=== PATIENT | male | born 1955 | race Caucasian/White ===

== ENCOUNTER 2016-04-05 10:51 | Emergency (ER) | payer MEDICARE, MEDICAID ==
[2016-04-05 10:52] VITALS: BMI 32.5
[2016-04-05 10:56] VITALS: TEMP 98.4
[2016-04-05] MEDS ORDERED: HYDROCODONE 5 MG/ACETAMIN 325 MG TAB PO ONE (11:17)
[2016-04-05 11:18] VITALS: BP 149/85; PULSE 82
--- NOTE | 2016-04-05 11:20 | EDPRACDOC ---
- General Information Chief Complaint: Knee Pain Stated Complaint: KNEE PAIN Time Seen by Provider: 04/05/16 11:16 Information Source: Patient Mode of Arrival: Car Home Medications: Home Medications Montelukast Sodium [Singulair] 10 mg PO DAILY 03/09/13 Levothyroxine Sodium [Synthroid] 50 mcg PO DAILY 07/30/14 Hydrocodone Bit/Acetaminophen [Lortab 5/325] 1 tab PO Q4-6H PRN #15 tab Allergies/Adverse Reactions: Allergies Allergy/AdvReac Type Severity Reaction Status Date / Time acetaminophen [From Percocet] Allergy Intermediate Nausea/Vomi Verified 10:56 ting cyclobenzaprine HCl Allergy Intermediate Nausea/Vomi Verified 04/05/16 10:56 [From Flexeril] ting promethazine HCl Allergy Intermediate Unknown/See Verified 04/05/16 10:56 [From Phenergan] Comments lansoprazole [From Prevacid] Allergy Mild HIVES Verified 04/05/16 10:56 Penicillins Allergy Mild HIVES Verified 04/05/16 10:56 cortisone Allergy Rash-Genera Verified 04/05/16 10:57 lized ketorolac tromethamine Allergy See Verified 04/05/16 10:56 [From Toradol] Comments - History of Present Illness Onset: RECORD KEEPER HPI: Pt states he fell while getting off his boat. C/o R knee pain with swelling. Pt states after fall his "knee cap wasn't in right spot". Denies numbness, leg or thigh pain, ankle pain. Knee Problem Location: Right Mechanism: Reports: Blunt Trauma Circumstances: Reports: Fall, Spontaneous Relevant History: Reports: None Able to Bear Weight: Limited Pain Severity: Reports: Moderate Associated Signs & Symptoms: Reports: Swelling ED Past Medical History - History Reviewed Yes Nurses notes reviewed and agree except as marked - Patient Medical History Respiratory History: Reports: Asthma Systemic History: Reports: Hyperthyroidism. Denies: Cancer Additional Past Medical History: CHRONIC BACK PAIN AND CHRONIC HEADACHES - Social Medical History Smoking Status: Heavy tobacco smoker (5 or more cigarettes/day or daily pipe/ cigar) ETOH: None Substance Abuse: None EDM Review of Systems - Review of Systems Constitutional: No Symptoms Reported. negative: Fever, Chills, Weakness, Fatigue, Loss of Appetite Neurological: No Symptoms Reported. negative: Headache, Dizziness, Seizure, Numbness, Weakness, Speech Difficulty, Gait Difficulty Musculoskeletal: Knee Integumentary: No Symptoms Reported. negative: Itching, Rash, Bruising, Wound Allergic/Immunologic: No Symptoms Reported. negative: Hives, Itching Hematologic: No Symptoms Reported. negative: Lymphadenopathy, Easy Bruising, Easy Bleeding Psychiatric: No Symptoms Reported. negative: Anxiety, Depression, Hallucinations, Insomnia, Suicidal - Physical Exam Constitutional: Alert (Awake) Oriented to: Time, Person, Place Last recorded Vital Signs: Last Vital Signs Temp 98.4 F 04/05/16 10:53 Pulse 82 04/05/16 11:17 Resp 18 04/05/16 11:17 BP 149/85 04/05/16 11:17 Pulse Ox 97 04/05/16 11:17 Oxygen Pulse Oxygen Saturation 97 O2 Device Room Air Oxygen Flow Rate Fraction of Inspired Oxygen ( FIO2) - HEENT Head: Normal ( normocephalic) - Respiratory/Cardiovascular Respiratory: Normal - CTA (BBS clear to auscultation without adventitious sounds ) Cardiovascular: Normal (RRR without murmur, gallop or rub) - Musculoskeletal Extremities: Normal (Normal tone, Pulses 2+ No cyanosis or edema, FROM) - Integumentary Skin: Normal, Warm, Dry Lymphatics: Normal (no adenopathy) - Neurologic Memory Impaired: Normal Motor Function: Normal (Normal tone, Pulses 2+ No cyanosis or edema, FROM) Mood Description: Normal Perception: Normal ED Knee Problem Phys Exam - Musculoskeletal Knee: Swelling, Joint Effusion, Limited ROM, Moderate Tenderness Knee Ligaments: Other (limited due to pain) Thigh: Normal Lower Leg: Normal Distal Function/Circulation: Normal - Integumentary Skin: Normal Lymphatics: Normal - Differential Diagnosis Contusion, DJD Arthritis, Meniscus Injury, Patella Fracture, Sprain - Diagnostic Imaging Knee Image interpreted by: Radiologist IMPRESSION: No acute fracture or subluxation. Small joint effusion. Spurring of patella. - Departure Disposition: Home Condition: Stable Final Diagnosis: Right knee sprain Qualifiers: Encounter type: initial encounter Involved ligament of knee: unspecified ligament Qualified Code(s): S83.91XA - Sprain of unspecified site of right knee , initial encounter Instructions: Knee Sprain (ED), RICE Therapy (ED) Education/Counseling Given To: Patient Education/Counseling Given Regarding: Diagnosis, Treatment Referrals: Clifford Garcia MD [Primary Care Provider] - One Week Nam Napier MD [Staff Physician] - One Week Prescriptions: New Hydrocodone Bit/Acetaminophen [Lortab 5/325] 1 tab PO Q4-6H PRN #15 tab PRN Reason: Pain No Action Montelukast Sodium [Singulair] 10 mg PO DAILY Levothyroxine Sodium [Synthroid] 50 mcg PO DAILY Additional Instructions: Elevate affected area as much as possible, apply cold compresses 20 mins at a time as needed for pain or swelling, wear splint until you follow up with orthopedics.
--- NOTE | 2016-04-05 11:47 | DIRPT ---
CLINICAL DATA: Fell off boat to this morning, right knee pain EXAM: RIGHT KNEE - COMPLETE 4+ VIEW COMPARISON: 03/11/2012 FINDINGS: Four views of the right knee submitted. No acute fracture or subluxation. There is narrowing of patellofemoral joint space. Spurring of superior aspect patella anteriorly. Small joint effusion. IMPRESSION: No acute fracture or subluxation. Small joint effusion. Spurring of patella. Electronically Signed By: Jaciel Rosales M.D. On: 04/05/2016 11:45
== END 2016-04-05 11:54 | disposition home or self-care (01) ==
LOC: ED 10:51 → EDMC 11:54
DX: S83.91XA Sprain of unspecified site of right knee, initial encounter (principal); X58.XXXA Exposure to other specified factors, initial encounter
CPT/HCPCS: 73564; 99283; A9270; J3490